=== PATIENT | female | born 1960 | race Caucasian/White ===

== ENCOUNTER 2016-08-12 06:10 | Day surgery (SDC) | payer MEDICARE, MEDICAID ==
[~2016-08-12] VITALS: Ht 160 cm; Wt 49.9 kg
[~2016-08-12 06:10] MED LIST: ALEN70TA2 PO; Acetaminophen IV 1,000 MG in IV Premix 1 EACH IV ONE; CA C1TAB77 PO; CHOL200047 PO; CITR30IR IR; FLUC150T48 PO; LACT1TAB11 PO; MULT-1018 PO; VIT1TABL83 PO; lithium; vitamin a; vitamin c; vitamin e
[2016-08-12] MEDS ORDERED: Phenylephrine/NS 100 mCg/mL 10 mL Syringe IVPUSH ONE (06:11)
[2016-08-12] MEDS ORDERED: Ondansetron 2 mg/mL 2 mL Inj ONE (06:11)
[2016-08-12] MEDS ORDERED: Dexamethasone 4 mg/mL Inj ONE (06:11)
[2016-08-12] MEDS ORDERED: fentaNYL-PF 50 mCg/mL 2 mL Inj ONE (06:11)
[2016-08-12] MEDS ORDERED: Glycopyrrolate 0.2 MG/ML 1mL Inj ONE (06:11)
[2016-08-12] MEDS ORDERED: Propofol 10,000 mCg/mL 20 mL Inj ONE (06:11)
[2016-08-12] MEDS ORDERED: Ketamine 10 mg/mL 20 mL Inj ONE (06:11)
[2016-08-12] MEDS: Lactated Ringer's 1,000 ML IV SCH ×2 (06:15→07:31)
[2016-08-12 06:45] VITALS: BP 106/70; PULSE 66; RESP 16; O2SAT 97
[2016-08-12] MEDS ORDERED: Lactated Ringer's 1,000 ML IV SCH (06:57)
[2016-08-12] MEDS ORDERED: Lactated Ringer's 500 ML IV PRN (06:57)
[2016-08-12] MEDS ORDERED: Ondansetron 2 mg/mL 2 mL Inj IVPUSH PRN (07:00)
[2016-08-12] MEDS ORDERED: MetoCLOpramide 5 mg/mL 2 mL Inj IVPUSH PRN (07:00)
[2016-08-12] MEDS ORDERED: EPHEDrine Sulfate 50 mg/mL Inj IVPUSH PRN (07:00)
[2016-08-12] MEDS ORDERED: Labetalol 5 mg/mL 4 mL Inj IV PRN (07:00)
[2016-08-12] MEDS ORDERED: hydrALAZINE 20 mg/mL Inj IVPUSH PRN (07:00)
[2016-08-12] MEDS ORDERED: Phenylephrine 10,000 mCg/mL Inj IVPUSH PRN (07:00)
[2016-08-12] MEDS ORDERED: HYDROmorphone 1 mg/mL Inj IVPUSH PRN (07:00)
[2016-08-12] MEDS ORDERED: fentaNYL-PF 50 mCg/mL 2 mL Inj IVPUSH PRN (07:00)
[2016-08-12] MEDS ORDERED: Dexamethasone 4 mg/mL Inj IVPUSH PRN (07:00)
[2016-08-12] MEDS ORDERED: CITA10TA9 PO (07:01)
[2016-08-12] MEDS ORDERED: [UNRECOGNIZED DRUG - OTHER] PO (07:01)
--- NOTE | 2016-08-12 07:17 | PCM.HPANE ---
Patient Data Date of Service: August 12, 2016 Surgeon Admitting Provider: Attending Provider:Noam Ferreira MD Primary Care Physician:Favian Kaur MD Other Provider:Elías Alvarez Anesthesia Reason for Visit Bladder Stone, Right Ureteral Stone Ht/WT & BMI Height (Feet): 5 Height (Inches): 3.00 Weight (Kilograms): 49.890 Body Mass Index 19.00 Allergies Coded Allergies: Sulfa (Sulfonamide Antibiotics) (Verified Allergy, Intermediate, Hives, ) ampicillin (Verified Allergy, Intermediate, Oral Swelling, 08/21/12) lactose (Verified Adverse Reaction, Intermediate, 08/21/12) Past Anesthesia History Anesthesia History: Denies:: Anesthesia Reactions, Malignant Hyperthermia Diabetes History Hx Diabetes?: No MRSA MRSA: No Medications Hypertension Medication: No Home Meds Incl Beta Mounika: No Reported Medications [multi vit's power] No Conflict Check Po Daily 08/12/16 Citalopram 10 Mg [id number] Mg PO DAILY Ref 0 08/12/16 Fluconazole (Diflucan)150 Mg Migasw312 Mg PO ONCE PRN sx #1 TABLET Ref 0 08/08/16 Alendronate Sodium (Fosamax)70 Mg Zgpkur04 Mg PO WEEKLY 30 Days Ref 0 08/08/16 Citric AC/Gluconolact/Mag Carb (Renacidin Irrigation Solution)6.602G/100 Irrig.soln30 Ml IR DAILY 08/08/16 Discontinued Reported Medications [vitamin a] No Conflict CheckUnknown Dose DAILY 08/08/16 Vit B Comp/C/FA/Iron/Vit E (Vitamin B Complex Tablet)1 Each Tablet1 Each PO DAILY 08/08/16 [vitamin e] No Conflict CheckUnknown Dose DAILY 08/08/16 [vitamin c] No Conflict CheckUnknown Dose DAILY 08/08/16 [lithium] No Conflict CheckUnknown Dose DAILY 08/08/16 Cholecalciferol (Vitamin D3) (Vitamin D3)2,000 Unit Capsule2,000 Unit PO DAILY 08/08/16 Ca Carb/Vit D3/Mag Ox/Zn Oxide (Colt Mag Zinc + D3 Tablet)1 Each Tablet1 Each PO DAILY 08/08/16 Lactobacillus Combo No.6 (Probiotic Complex)1 Each Tablet1 Each PO DAILY 08/08/16 Multivitamin (Multi Vitamin Daily)1 Each Tablet1 Each PO DAILY 30 Days Ref 0 08/08/16 Nystatin 150 Mmu/Pwd Powder.ea. Top Bid APPLY BID TO AFFECTED AREA(S) 08/17/12 Aloe Vera 1 Each Capsule1 Each PO NO FREQUENCY DRIKN JUICE 08/17/12 Lacto Acid-Expunged Drug, Do Not Renew! (Acidophilus-Expunged Drug, Do Not Renew !)1 Each Capsule1 Each PO DAILY 08/17/12 Aspirin-Expunged Drug, Do Not Renew! (Lo-Dose Aspirin-Expunged Drug, Do Not Renew!)81 Mg Tablet.dr81 Mg PO DAILY 08/17/12 Cranberry Extract (Cranberry)250 Mg Mswtqvl643 Mg PO DAILY 08/17/12 Fluconazole-Expunged Drug, Do Not Renew! (Diflucan-Expunged Drug, Do Not Renew!) 150 Mg Bwysku572 Mg PO DAILY 08/17/12 Calcium Carbonate/Mag Hydrox (Antacid Chewable Tablet)1 Each Tab.chew1 Each PO DAILY 08/17/12 Alendronate-Expunged Drug, Do Not Renew! 35 Mg Gntlrx72 Mg PO QWAC 08/17/12 MULTIVITAMIN-Expunged Drug, Do Not Renew! (MULTI VITAMIN -Expunged Drug, Do Not Renew!)1 Each Tablet1 Each PO DAILY 08/17/12 CHOLECALCIFEROL-Expunged Drug, Do Not Renew! (VITAMIN D3-Expunged Drug, Do Not Renew!)2,000 Unit Capsule2,000 Unit PO DAILY 08/17/12 Naltrexone-Expunged Drug, Do Not Renew! (Revia-Expunged Drug, Do Not Renew!)50 Mg Nbeviw18 Mg PO DAILY 08/17/12 Docusate Sod-Expunged Drug, Do Not Renew! 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 (hx of pressure ulcers) Denies:: Pressure Ulcers Hx Musculoskeletal Problems?: No Hx of Psycho/Social Problems?: No Hx Surgeries?: Yes (laparoscopy, suprapubic cath placement) Hx Any Other Health Problems?: Yes Other History: Positive for:: Hospitalization Denies:: Cancer Endocrine Disease Thyroid Disease History Blood Transfusions: Denies:: Blood Transfusions Hx Diabetes: No Hx Alcohol Use: NoHx Substance Use: NoHave You Smoked inLast 12 mo: No Stop/Bang S-Snoring: Do You Snore Loudly: No T-Tired: feel tired, fatigued: Yes O-Obsered: Observed not breath: No P-Blood Pressure: treated: No B- Body Mass Index > 35 kg/m2: No A- Age over 50: Yes N- Neck Large Circumference: No G- Gender Male: No THAD Total Score: 2 THAD Risk Assessment: Low Risk, <3 Yes Risk Assessment Category Category 1A: Patient has history of documented sleep apnea, and HAS NOT received any narcotic, sedative or anesthesia administration during this stay. Category 1B: Patient has history of documented sleep apnea, and HAS received any narcotic , sedative or anesthesia administration during this stay Category 2: Patient has SUSPECTED Obstructive Sleep Apnea, and HAS received any narcotic , sedative or anesthesia administration during this stay. Category 3: Patient has SUSPECTED Obstructive Sleep Apnea and HAS NOT received narcotic, sedative or anesthesia administration during this stay. Category 4: Outpatient in Procedural Areas with known sleep apnea or who screen positive for High Risk via the STOP/BANG questionnaire. Exam Exam Vital Signs Vital Signs Date Time Temp Pulse Resp B/P Pulse Ox O2 Delivery O2 Flow Rate FiO2 08/12/16 06:45 37.5 66 16 106/70 97 Room Air General Appearance: Alert, Oriented X3, Cooperative, No Acute Distress HEENT/AIRWAY: MP 4 Lungs: Clear to Auscultation, Normal Air Movement Heart: Exam Unremarkable, Regular Rate/Rhythm, No Murmurs/Rubs/Gallops Meds/Labs/Diagnostics Admission Meds Current Medications Lactated Ringer's (Lr) 1,000 ml @ 120 mls/hr Q8H20M IV Last administered on t 06:15; Start 08/12/16 at 05:00; Stop 08/12/16 at 13:19 Plan Impression Patient chart reviewed, patient interviewed and anesthestic plan with risks, benefits, and alternatives discussed, and informed consent obtained. NPO per Anesth. Guidelines: Yes ASA Physical Status: ASA3 Severe Disease Anesthetic Plan: GA Bene/Risks/Altern/Consents: Yes HP Complete Prior to Induction: Yes Srikanth Delacruz MD August 12, 2016 07:17
[2016-08-12] MEDS ORDERED: levoFLOXacin 500 mg/100 mL D5W Premix IV ONE (07:53)
[2016-08-12] MEDS ORDERED: Iopamidol-300 50 mL Inj IV ONE (08:05)
[2016-08-12 09:45] VITALS: BP 107/71; PULSE 84; RESP 15; O2SAT 99
[2016-08-12 09:50] VITALS: BP 100/73; PULSE 85; RESP 14; O2SAT 99
[2016-08-12 09:55] VITALS: BP 98/60; PULSE 87; RESP 13; O2SAT 96
[2016-08-12 10:10] VITALS: BP 95/62; PULSE 82; RESP 14; O2SAT 96
[2016-08-12 10:20] VITALS: BP 92/58; PULSE 84; RESP 16; O2SAT 97
[2016-08-12 11:22] LABS: APPEARANCE,URINE SLIGHTLY CLOUDY (CLEAR,HAZY); COLOR,URINE BLOODY (YELLOW)
[2016-08-12 11:23] LABS: OCCULT BLOOD,URINE LARGE (NEGATIVE); UROBILINOGEN,URINE NORMAL (NORMAL)
--- NOTE | 2016-08-12 11:40 | PCM.ANEP1 ---
Post Anesthesia Phase 1 PACU Phase 1 Assessment Date of Service: August 12, 2016 Vital Signs Vital Signs Date Time Temp Pulse Resp B/P Pulse Ox O2 Delivery O2 Flow Rate FiO2 08/12/16 10:20 84 16 92/58 97 Room Air 08/12/16 10:10 82 14 95/62 96 Room Air 08/12/16 09:55 87 13 98/60 96 Room Air 08/12/16 09:50 85 14 100/73 99 Simple Mask 10 08/12/16 09:45 36.2 84 15 107/71 99 Simple Mask 10 08/12/16 06:45 37.5 66 16 106/70 97 Room Air Anesthetic Administered: GA Level of Alertness: Awake, talking Pain: No Nausea or Vomiting: No Cardiovascular Function and Hy: Yes Oxygen Delivery: Room Air Lungs: Clear to Auscultation, Normal Air Movement Complications: No Srikanth Delacruz MD August 12, 2016 11:40
--- NOTE | 2016-08-13 06:44 | OP ---
[address] [address] OPERATIVE REPORT PATIENT: RASHEEDA TUCKER : 1960 MR#: [id number] ADMIT: 08/12/2016 JOB ID: [id number] DATE OF SURGERY: 08/12/2016 PREOPERATIVE DIAGNOSIS(ES): 1. A 3.6 cm bladder calculus. 2. Recurrent urinary tract infection. POSTOPERATIVE DIAGNOSIS(ES): 1. A 3.6 cm bladder calculus. 2. Recurrent urinary tract infection. OPERATION PERFORMED: 1. Cystoscopy. 2. Laser litholapaxy. SURGEON: Noam Ferreira MD ANESTHESIOLOGIST: Srikanth Delacruz MD ANESTHESIA: General. PROCEDURE SUMMARY: The patient was positioned in supine, was administered general anesthesia. She was then positioned in modified semi-lithotomy. The lower abdomen, genitalia, groin and vaginal vault were prepped and draped in sterile fashion. The 25-Beninese endoscope was then inserted in the lower urinary tract, with findings of a large oval bladder calculus occupying most of the capacity of the bladder. The 975 micron laser fiber was selected. All operating room personnel and patient was fitted with laser safety eyewear. Lithotripsy was then commenced. After painstaking and laborious effort, the stone was finally broken down into size of pieces that could be irrigated from the bladder. This was subsequently done with the assistance of the Jeanette evacuator. Next, the existing suprapubic tube was removed and a 24-Beninese silver-impregnated silicone catheter was inserted. The balloon was filled to 5 cc, and the catheter was then placed to gravity drainage. The patient was then repositioned in supine, awakened, transferred to a gurney, transferred to the recovery room in stable condition. The patient tolerated the procedure well.
[2016-08-20 09:14] LABS: Stone Color Tan (.)
== END 2016-08-12 23:59 | disposition home or self-care (01) ==
LOC: SAS 06:10
PROVIDERS: ATTEND Specialist
PROC: 0T2BX0Z Change Drainage Device in Bladder, External Approach (ICD-10-PCS; 2016-08-12)
PROC: 0TCB8ZZ Extirpation of Matter from Bladder, Via Natural or Artificial Opening Endoscopic (ICD-10-PCS; principal; 2016-08-12 07:30)
DX: N21.0 Calculus in bladder (principal); N39.0 Urinary tract infection, site not specified; G35 Multiple sclerosis; N31.8 Other neuromuscular dysfunction of bladder; N20.1 Calculus of ureter; Z87.442 Personal history of urinary calculi; Z87.440 Personal history of urinary (tract) infections
CPT/HCPCS: 51705; 52318; 81000; 82360; 87070; 87075; 87077; 87086; 87088; 87186; 87205; J0131; J1100; J1885; J2370; J2405; J3010; J7120